=== PATIENT | male | born 2000 | race Two or more races ===

== ENCOUNTER 2020-05-26 22:14 | Emergency (ER) | payer OTHER ==
[~2020-05-26] VITALS: Ht 170.2 cm; Wt 61.7 kg
--- NOTE | 2020-05-26 22:36 | NUR ---
ED Nurse Note: pt presents to ED c/o L sided weakness and numbness for a few weeks. pt reports he tested (+) for COVID on 05/06. since then he has had progressive weakness to his L side. he reports pain and numbess to the L side of his face, and weakness to L arm and leg, cannot bear weight on L leg. upon exam performed by ERMD, pt is neurovascularly intact, no arm drift, smile is symmetric, eye brow raise is even. pt reports family h/o CVA
[2020-05-26 22:38] VITALS: BP 161/103
--- NOTE | 2020-05-26 22:42 | Emergency Room Report ---
History of Present Illness General Chief Complaint: Generalized Weakness Source: Patient Present Illness HPI Disclaimer: Please note that this report is being documented using DRAGON technology. This can lead to erroneous entry secondary to incorrect interpretation by the dictating instrument. HPI: 19-year-old male presenting for evaluation of weakness. The patient states he tested positive for COVID-19 on 05/08/2020 and became symptomatic on 05/06. He has since recovered and denies any respiratory issues, fever or chills but he reports worsening left-sided weakness and numbness over the past 3 weeks. He reports numbness and tingling of her left side of the face and the tongue and progressive weakness of the left upper and lower extremity. Still able to ambulate but he states he sometimes has to drag his foot. He also states he gets exhausted if standing too long or speaking too long. Reports decreased g rip strength on the left side. Denies any problems with coordination or balance. He states his eyes "feel tired" and sometimes hard to focus after prolonged activity. He states there is significant family history of stroke in young people. Unknown if whether or not there is history of MS or other autoimmune disorders in the family. He states there are "neurological issues." Denies alcohol or drug use. Weakness progressively worsening over the past week. PMH: Denied PSH: Denied Allergies: Denied Social Hx: Denied alcohol or drug abuse Allergies: Coded Allergies: No Known Allergies (Unverified , 05/26/20) COVID-19 Screening Contact w/high risk pt: No Experienced COVID-19 symptoms?: No COVID-19 Testing performed TALKBACK HOST: Yes - positive may 06 2020 COVID-19 Screening: PUI COVID-19 COVID-19 Testing Source: clinic Nursing Documentation-PMH Past Medical History: No History, Except For Review of Systems All Other Systems: negative except mentioned in HPI Physical Exam Vital Signs Date Time Temp Pulse Resp B/P (MAP) Pulse Ox O2 Delivery O2 Flow Rate FiO2 05/26/20 22:22 98.2 100 16 161/103 (122) 98 Room Air General: Awake and alert, no acute distress HEENT: NC/AT. EOMI. PERRLA. Visual braun are full. No nystagmus. Facial expressions are symmetrical. No facial droop. Cardiovascular: RRR. S1 and S2 normal. No murmur appreciated Resp: Normal work of breathing. No cough, wheezing or crackles appreciated Abdomen: Abdomen is soft, nondistended. Nontender Skin: Intact. No abrasions, laceration or rash over the exposed skin MSK: Normal tone and bulk. Moving all extremities. No obvious deformity. There is no drift in the upper or lower extremities bilaterally. Neuro: Awake and alert. Mentating appropriately. Facial expression symmetrical. No dysarthria, no ataxia on [id number] or [id number] testing. Sensation to light touch is intact over the upper and lower extremiti es. The patient has intact speech with good repetition, comprehension. Fund of knowledge is full. No aphasia, no neglect. NIH: 0 Medical Decision Making Diagnostic Impression: Primary Impression: Hyperlipidemia Additional Impressions: [id number] condition Weakness ER Course This a 19-year-old male presenting for evaluation progressive weakness on the left side. Patient tested positive for COVID-19 on 05/08/2020 and states symptoms progressively worse since then. Differential includes was not limited to post Covid syndrome, autoimmune disorder, demyelinating disorder, CVA, focal seizures, space-occupying mass, electrolyte abnormality among others. He arrives neurologically intact. CT head unremarkable. MRI shows no mass, bleed, evidence of stroke or other significant abnormalities. Labs show hyperlipidemia but otherwise are within normal limits. This may be a post Covid-like syndrome and will likely require neurology evaluation. His PMD can refer him to neurology. Copies of his labs and imaging of been included in discharge paperwork to take to his PMD and neurologist. Patient stable for outpatient follow-up. Instructed to return with new or worsening symptoms. Laboratory Tests Test 05/26/20 22:30 White Blood Count 6.2 K/UL (4.8-10.8) Red Blood Count 5.41 M/UL (4.70-6.10) Hemoglobin 17.2 G/DL (14.2-18.0) Hematocrit 47.3 % (42.0-52.0) Mean Corpuscular Volume 87 FL (80-99) Mean Corpuscular Hemoglobin 31.8 PG (27.0-31.0) H Mean Corpuscular Hemoglobin Concent 36.4 G/DL (32.0-36.0) H Red Cell Distribution Width 12.1 % (11.6-14.8) Platelet Count 220 K/UL (150-450) Mean Platelet Volume 6.8 FL (6.5-10.1) Neutrophils (%) (Auto) 61.8 % (45.0-75.0) Lymphocytes (%) (Auto) 30.1 % (20.0-45.0) Monocytes (%) (Auto) 5.7 % (1.0-10.0) Eosinophils (%) (Auto) 1.1 % (0.0-3.0) Basophils (%) (Auto) 1.4 % (0.0-2.0) Prothrombin Time 11.5 SEC (9.30-11.50) Prothrombin Time INR 1.0 (0.9-1.1) Activated Partial Thromboplast Time 28 SEC (23-33) Sodium Level 139 MMOL/L (136-145) Potassium Level 3.2 MMOL/L (3.5-5.1) L Chloride Level 101 MMOL/L (98-107) Carbon Dioxide Level 27 MMOL/L (21-32) Anion Gap 12 mmol/L (5-15) Blood Urea Nitrogen 15 mg/dL (7-18) Creatinine 1.0 MG/DL (0.55-1.30) Estimated Glomerular Filtration Rate > 60 mL/min (>60) Glucose Level 107 MG/DL (74-106) H Calcium Level 9.7 MG/DL (8.5-10.1) Total Bilirubin 0.5 MG/DL (0.2-1.0) Aspartate Amino Transferase (AST) 20 U/L (15-37) Alanine Aminotransferase (ALT) 34 U/L (12-78) Alkaline Phosphatase 93 U/L (46-116) Total Creatine Kinase 93 U/L (26-308) Total Protein 8.3 G/DL (6.4-8.2) H Albumin 4.9 G/DL (3.4-5.0) Globulin 3.4 g/dL Albumin/Globulin Ratio 1.4 (1.0-2.7) Triglycerides Level 157 MG/DL (30-150) H Cholesterol Level 205 MG/DL (< 200) H LDL Cholesterol 148 mg/dL (<100) H HDL Cholesterol 34 MG/DL (40-60) L Cholesterol/HDL Ratio 6.0 (3.3-4.4) H EKG Diagnostic Results Troponin ordered: Yes When was troponin ordered?: May 26, 2020 EKG Time: 22:44 Rate: normal Rhythm: NSR ST Segments: no acute changes Other Impression Sinus rhythm, normal axis, normal intervals, no ST segment changes. Rhythm Strip Diag. Results Rhythm Strip Time: 22:44 EP Interpretation: yes Rate: 90s Rhythm: NSR, no PVC's, no ectopy CT/MRI/US Diagnostic Results CT/MRI/US Diagnostic Results : Impression Procedure: MRI Brain w/wo Contrast EXAM: MR Head Without and With Intravenous Contrast CLINICAL HISTORY: WEAK TECHNIQUE: Magnetic resonance images of the head/brain without and with intravenous contrast in multiple planes. COMPARISON: No relevant prior studies available. FINDINGS: Brain: No acute infarct, hemorrhage, mass or edema. Ventricles: Unremarkable. No ventriculomegaly. Bones/joints: Unremarkable. Sinuses: Unremarkable as visualized. No acute sinusitis. Mastoid air cells: Unremarkable as visualized. No mastoid effusion. Orbits: Unremarkable as visualized. IMPRESSION: No acute infarct, hemorrhage, mass or edema. Dictated By: Jimmy Mccullough MD Electronically Signed By:Jimmy Mccullough MD Signed Date/Time 05/27/20 0049 Last Vital Signs Date Time Temp Pulse Resp B/P (MAP) Pulse Ox O2 Delivery O2 Flow Rate FiO2 05/26/20 22:22 98.2 100 16 161/103 (122) 98 Room Air Disposition: HOME, SELF-CARE Condition: Stable Balaji Singh MD May 26, 2020 22:42
[2020-05-26] MEDS ORDERED: Gadavist 7.5mMol/7.5ml vial IV PRN (22:45)
--- NOTE | 2020-05-26 22:47 | NUR ---
ED Nurse Note: pt transported to CT via wheelchair, ep technologist paged
--- NOTE | 2020-05-26 23:04 | Diagnostic Imaging Report ---
EXAM: CT Head Without Intravenous Contrast CLINICAL HISTORY: WEAK TECHNIQUE: Axial computed tomography images of the head/brain without intravenous contrast. CTDI is 53.40 mGy and DLP is 1072.20 mGy-cm. One or more of the following dose reduction techniques were used: automated exposure control, adjustment of the mA and/or kV according to patient size, use of iterative reconstruction technique. COMPARISON: None FINDINGS: Brain: There is a 6.5 cm probable posterior fossa arachnoid cyst. No hemorrhage. No significant white matter disease. Ventricles: Unremarkable. No ventriculomegaly. Bones/joints: Unremarkable. No acute fracture. Soft tissues: Unremarkable. Sinuses: Unremarkable as visualized. No acute sinusitis. Mastoid air cells: Unremarkable as visualized. No mastoid effusion. IMPRESSION: No acute intracranial process.
--- NOTE | 2020-05-26 23:05 | NUR ---
ED Nurse Note: Received report from NOAM Alarcon. patient in stable condition at this time and complains of no pain. will continue to monitor
[2020-05-26 23:30] LABS: ANION GAP 12 mmol/L (5-15); BLOOD UREA NITROGEN 15 mg/dL (7-18); CALCIUM 9.7 MG/DL (8.5-10.1); CARBON DIOXIDE 27 MMOL/L (21-32); CHLORIDE 101 MMOL/L (98-107); POTASSIUM 3.2 MMOL/L (3.5-5.1); SODIUM 139 MMOL/L (136-145)
[2020-05-26 23:34] LABS: ALANINE AMINOTRANSFERASE 34 U/L (12-78); ALBUMIN 4.9 G/DL (3.4-5.0); ALBUMIN/GLOBULIN RATIO 1.4 (1.0-2.7); ALKALINE PHOSPHATASE 93 U/L (46-116); ASPARTATE AMINO TRANSFERASE 20 U/L (15-37); BILIRUBIN,TOTAL 0.5 MG/DL (0.2-1.0); CHOLESTEROL 205 MG/DL (< 200); CREATINE KINASE 93 U/L (26-308); HDL CHOLESTEROL 34 MG/DL (40-60); TRIGLYCERIDES 157 MG/DL (30-150)
--- NOTE | 2020-05-27 | NUR ---
ED Nurse Note: patient went to MRI accompanied by catheterization laboratory technician.
[2020-05-27 00:15] LABS: BASOPHILS % (AUTO) 1.4 % (0.0-2.0); EOSINOPHILS % (AUTO) 1.1 % (0.0-3.0); HEMATOCRIT 47.3 % (42.0-52.0); HEMOGLOBIN 17.2 G/DL (14.2-18.0); LYMPHOCYTES % (AUTO) 30.1 % (20.0-45.0); MEAN CORPUSCULAR VOLUME 87 FL (80-99); MONOCYTES % (AUTO) 5.7 % (1.0-10.0); NEUTROPHILS % (AUTO) 61.8 % (45.0-75.0); PLATELET COUNT 220 K/UL (150-450); RED BLOOD COUNT 5.41 M/UL (4.70-6.10); RED CELL DISTRIBUTION WIDTH 12.1 % (11.6-14.8); WHITE BLOOD COUNT 6.2 K/UL (4.8-10.8)
--- NOTE | 2020-05-27 00:35 | NUR ---
ED Nurse Note: Patient has returned back from MRI.
--- NOTE | 2020-05-27 00:49 | Diagnostic Imaging Report ---
EXAM: MR Head Without and With Intravenous Contrast CLINICAL HISTORY: WEAK TECHNIQUE: Magnetic resonance images of the head/brain without and with intravenous contrast in multiple planes. COMPARISON: No relevant prior studies available. FINDINGS: Brain: No acute infarct, hemorrhage, mass or edema. Ventricles: Unremarkable. No ventriculomegaly. Bones/joints: Unremarkable. Sinuses: Unremarkable as visualized. No acute sinusitis. Mastoid air cells: Unremarkable as visualized. No mastoid effusion. Orbits: Unremarkable as visualized. IMPRESSION: No acute infarct, hemorrhage, mass or edema.
[2020-05-27 01:00] VITALS: BP 129/82
--- NOTE | 2020-05-28 10:47 | Cardiology Report ---
APPROVED REPORT EKG Measurement Heart [id number] <Conclusion> Normal sinus rhythm Possible Left atrial enlargement Borderline ECG
== END 2020-05-27 01:00 | disposition home or self-care (01) ==
LOC: EMR 22:30
DX: E78.5 Hyperlipidemia, unspecified (principal); Z86.16 Personal history of COVID-19; R53.1 Weakness
CPT/HCPCS: 36415; 70450; 70553; 80053; 80061; 82550; 85025; 85610; 85730; 93005; A9585; Z7502; 99284